=== PATIENT | female | born 1975 | race Two or more races ===

== ENCOUNTER 2025-06-10 17:52 | Inpatient (IN) | payer OTHER ==
[~2025-06-10] VITALS: Ht 172.7 cm; Wt 136.1 kg
--- NOTE | 2025-06-10 20:37 | NUR ---
PACIENTE ALERTA Y ORIENTADA X3 REFIERE VENIR POR ORDEN MEDICA DE DR. VALENTINE PARA ADMISION POR EDEMA EN LAS EXTREMIDADES INFERIORES. SE ASHLEY S/V Y SE UBICA.
--- NOTE | 2025-06-10 22:52 | NUR ---
PTE EVALUADO POR DR. REID, PRESENTANDO EDEMA GENERALIZADO, SE CALDERON MUESTRAS DE ALMAZ BAJO MEDIDAS ASEPTICAS, MEDICACION GIO ORDEN MEDICA ADMINISTRADA Y SE ORIENTA SOBRE PROCEDIMIENTOS REALIZADOS. CLIENTE ALERTA Y ORIENTADO ALE INTERVENCION RN.
[2025-06-10 23:19] LABS: BASO % 0.7 % (0.1-1.2); EOS # 0.25 (0.04-0.54); EOS % 3.5 % (0.7-7.0); LYMPH # 3.14 (1.18-3.74); LYMPH % 44.2 % (19.3-53.1); MEAN PLATELET VOLUME 11.40 fl (9.4-12.4); MONO # 0.33 (0.24-0.82); MONO % 4.6 % (4.7-12.5); NEUT # 3.32 (1.56-6.13); NEUT % 46.7 % (34.0-71.1); RED CELL DISTRIBUTION WIDTH 13.2 % (11.6-14.4)
[2025-06-10 23:37] LABS: INR 1.02
[2025-06-10 23:42] LABS: ALT/SGPT 15 U/L (12-78); AST/SGOT 23 U/L (15-37); BILIRUBIN TOTAL 0.15 mg/dL (0.3-1.2); BILIRUBIN,CONJUGATED < 0.10 mg/dL (0.0-0.2); BUN CREA RATIO 13 (7.0-25.0); CREATININE SERUM 0.76 mg/dL (0.55-1.02); GFR 81.22; GLOBULINA 4.9 G/DL (2.4-3.5); GLUCOSE FASTING 147 mg/dL (65-100); OSMOLALITY SERUM 285 MOSM/KG (275-295)
[2025-06-10 23:59] LABS: URINE APPEARANCE Clear; URINE BILIRRUBIN Negative (NEGATIVE); URINE BLOOD Small; URINE COLOR Yellow; URINE GLUCOSE Negative (NEGATIVE); URINE KETONE Negative (NEGATIVE); URINE LEUKOCYTE Negative; URINE NITRATE Negative; URINE PROTEIN >=1000 (NEGATIVE); URINE UROBILINOGEN 1.0 E.U./dl
[2025-06-11 00:03] LABS: URINE BACTERIA 85.1 uL (0.0-1933); URINE CAST 1.90 uL (0.0-1.40); URINE EPITHELIAL CELLS 8.7 uL (0.0-38.8); URINE RBC 18.0 uL (0.0-20.8); URINE WBC 3.9 uL (0.0-23.2)
[2025-06-11] MEDS ORDERED: ENOXAPARIN SODIUM 80 MG/0.8 ML SYRINGE SUBCUTANEO STA (01:02)
[2025-06-11] MEDS ORDERED: ASPIRIN 325 MG TABLET PO STA (01:03)
[2025-06-11] MEDS ORDERED: TICAGRELOR 90 MG TABLET PO STA (01:03)
[2025-06-11] MEDS ORDERED: ENOXAPARIN SODIUM 80 MG/0.8 ML SYRINGE SUBCUTANEO ONE (04:38)
[2025-06-11] MEDS ORDERED: NITROGLYCERIN IN 5 % DEXTROSE 50 MG/250 ML BOTTLE IV ONE (04:38)
[2025-06-11] MEDS ORDERED: LEVOTHYROXINE SODIUM 100 MCG/VIAL VIAL IV STA (06:58)
[2025-06-11] MEDS ORDERED: METHYLPREDNISOLONE SOD SUCC 500 MG VIAL IV SCH (06:59)
--- NOTE | 2025-06-11 08:05 | NUR ---
SE RECIBE PACIENTE ALERTA Y ORIENTADA X3 LA MISMA CON CANULA A 1 LITRO , CANALIZADA EN A/C CRYSTAL CON UN #22 PATENTE KEVIN DE EDEMA Y ERITEMA , BAJANDO UN TRIDIL A 3ML/HR. EN CONSULTA CON EL .ME REFIEREN LA COMPANERA Q LA PACIENTE NO QUISO EL FOLLY.
[2025-06-11] MEDS ORDERED: METHYLPREDNISOLONE SOD SUCC 40 MG VIAL ONE (08:59)
[2025-06-11] MEDS ORDERED: NITROGLYCERIN IN 5 % DEXTROSE 250 ML IV SCH (09:00)
--- NOTE | 2025-06-11 10:08 | NUR ---
SE LE BRINTA DIETA BAJA EN SODIO POR ORDEN DE
--- NOTE | 2025-06-11 16:23 | NUR ---
SE RECIBE PACIENTE ALERTA Y ORIENTADO X3. LA MISMA CONECTADA A MONITOR CARDIACO Y OXIMETRIA DE PULSO. CANALIZADA EN BRAZO CRYSTAL # 22 PATENTE Y KEVIN DE DOLOR BAJANDO CON UN TRIDIL 50MG/250ML @ 3 ML/HR. LA MISMA PENDIENTE A CASPER CUAL REHUSO Y CONSULTA CON MEDICINA INTERNA DR. CORREA. SE COLOCA DRIP DE TRIDIL EN HOLD POR ORDEN EN EMAR.
[2025-06-11] MEDS ORDERED: ACETAMINOPHEN 325 MG TABLET PO PRN (18:15)
[2025-06-11] MEDS ORDERED: ALBUMIN HUMAN-25 0.25GM/ML (50ML) VIAL IV ONE (20:00)
[2025-06-11] MEDS ORDERED: POTASSIUM CHLORIDE 8 MEQ TABLET PO SCH (21:43)
[2025-06-11 22:32] VITALS: BP 155/99
[2025-06-12 04:24] VITALS: BP 148/91; O2SAT 95
[2025-06-12] MEDS ORDERED: LEVOTHYROXINE SODIUM 200 MCG TABLET PO SCH (06:00)
[2025-06-12 08:11] LABS: BASO % 0.5 % (0.1-1.2); EOS # 0.04 (0.04-0.54); EOS % 0.5 % (0.7-7.0); LYMPH # 2.56 (1.18-3.74); LYMPH % 29.4 % (19.3-53.1); MEAN PLATELET VOLUME 11.80 fl (9.4-12.4); MONO # 0.45 (0.24-0.82); MONO % 5.2 % (4.7-12.5); NEUT # 5.59 (1.56-6.13); NEUT % 64.2 % (34.0-71.1); RED CELL DISTRIBUTION WIDTH 13.3 % (11.6-14.4)
[2025-06-12 08:39] VITALS: BP 147/72; O2SAT 94
[2025-06-12 08:54] LABS: CHOL HDL RATIO 6.5 (0-5.0); HDL 62.0 mg/dl (40-60); LDL 271.0 mg/dl (0-130); VLDL 72.0 (0-39)
[2025-06-12 08:55] LABS: BUN CREA RATIO 17.0 (7.0-25.0); CREATININE SERUM 0.7 mg/dL (0.55-1.02); GFR 89.31; GLUCOSE FASTING 146.0 mg/dL (65-100); OSMOLALITY SERUM 287.0 MOSM/KG (275-295); T4 FREE 0.59 NG/ML (0.76-1.46)
[2025-06-12] MEDS ORDERED: ENOXAPARIN SODIUM 40 MG/0.4 ML SYRINGE SUBCUTANEO SCH (09:00)
[2025-06-12] MEDS ORDERED: LOSARTAN/HYDROCHLOROTHIAZIDE 1 UDTAB TABLET PO SCH (09:00)
[2025-06-12] MEDS ORDERED: ACETAMINOPHEN 500 MG GEL..CAP PO PRN (09:45)
[2025-06-12] MEDS ORDERED: SPIRONOLACTONE 25 MG TABLET PO NR (10:00)
[2025-06-12 17:43] VITALS: BP 157/93
[2025-06-12] MEDS ORDERED: DEXTROSE 50 % IN WATER 0.5 G/ML DISP.SYRIN IV PRN (20:45)
[2025-06-12] MEDS ORDERED: INSULIN LISPRO 1,000 UNIT/10 ML UNITS SUBCUTANEO PRN (20:45)
[2025-06-13] MEDS ORDERED: ALBUMIN HUMAN-25 0.25GM/ML (50ML) VIAL IV SCH ×2 (01:00→13:00)
[2025-06-13 02:46] VITALS: BP 155/87; O2SAT 96
[2025-06-13 06:45] LABS: ALT/SGPT 16.0 U/L (12-78); AST/SGOT 26.0 U/L (15-37); BILIRUBIN TOTAL 0.23 mg/dL (0.3-1.2); BUN CREA RATIO 22.0 (7.0-25.0); CREATININE SERUM 0.67 mg/dL (0.55-1.02); GFR 93.94; GLOBULINA 3.3 G/DL (2.4-3.5); GLUCOSE FASTING 114.0 mg/dL (65-100); OSMOLALITY SERUM 289.0 MOSM/KG (275-295)
[2025-06-13] MEDS ORDERED: SPIRONOLACTONE 25 MG TABLET PO SCH (09:00)
[2025-06-13 09:07] VITALS: BP 168/86; O2SAT 96
[2025-06-13] MEDS ORDERED: LEVOTHYROXINE SODIUM 100MCG/ML REDILUIDO IV SCH (13:00)
[2025-06-13] MEDS ORDERED: BUMETANIDE 0.5 MG TABLET PO SCH (17:00)
[2025-06-13 20:41] VITALS: BP 175/82; O2SAT 95
[2025-06-14 01:00] VITALS: BP 155/96; O2SAT 99
[2025-06-14 10:01] VITALS: BP 178/90; O2SAT 94
[2025-06-14] MEDS ORDERED: AMINO ACIDS/PROTEIN HYDROLYS 30 ML BLIST.PACK PO SCH (17:00)
[2025-06-14 18:45] VITALS: BP 182/92; O2SAT 97
[2025-06-14] MEDS ORDERED: LOSARTAN POTASSIUM 100 MG TABLET PO SCH (20:52)
[2025-06-14] MEDS ORDERED: BUMETANIDE 0.25 MG/ML VIAL 4ML IV SCH (21:02)
[2025-06-15 03:23] VITALS: BP 167/82; O2SAT 96
[2025-06-15 06:57] LABS: BUN CREA RATIO 21 (7.0-25.0); CREATININE SERUM 0.58 mg/dL (0.55-1.02); GFR 110.96; GLUCOSE FASTING 127 mg/dL (65-100); OSMOLALITY SERUM 288 MOSM/KG (275-295)
[2025-06-15] MEDS ORDERED: LEVOTHYROXINE SODIUM 200 MCG TABLET PO STA (09:01)
[2025-06-15 10:36] VITALS: BP 159/83; O2SAT 97
[2025-06-15] MEDS ORDERED: AMLODIPINE BESYLATE 5 MG TABLET PO SCH (17:00)
[2025-06-15 19:49] VITALS: BP 182/100; O2SAT 97
[2025-06-16 03:10] VITALS: BP 146/84; O2SAT 94
[2025-06-16] MEDS ORDERED: LEVOTHYROXINE SODIUM 200 MCG TABLET PO SCH (06:00)
[2025-06-16 07:09] LABS: URINE PROT QUANT 24HR 1113.3 MG/DL
[2025-06-16 07:13] LABS: CREATINE CLEARANCE 98.1 ML/MIN (97-137); CREATININE SERUM 0.56 mg/dL (0.6-1.0)
[2025-06-16 09:13] VITALS: BP 146/84; O2SAT 96
[2025-06-16 10:07] LABS: COMPLEMENT C3 172 mg/dL (82-167); COMPLEMENT C4 23 mg/dL (12-38)
[2025-06-16] MEDS ORDERED: AMLODIPINE BESYL5 MG PO (11:13)
[2025-06-16] MEDS ORDERED: CLONIDINE HCL0.2 MG PO (11:13)
[2025-06-16] MEDS ORDERED: SPIRONOLACTONE25 MG PO (11:13)
[2025-06-16] MEDS ORDERED: LOSARTAN POTAS100 MG PO (11:13)
[2025-06-16] MEDS ORDERED: BUMETANIDE1 MG PO (11:14)
[2025-06-16] MEDS ORDERED: LEVOTHYROXINE200 MCG PO (11:23)
[2025-06-16] MEDS ORDERED: PROTEINEX-18 LI30 ML PO (11:24)
[2025-06-16 12:08] LABS: ANTI RIBOSOMAL AB < 0.2 AI (0.0-0.9)
== END 2025-06-16 17:16 | disposition home or self-care (01) | DRG 698 ==
LOC: ER 17:53 → MEDJ 06-11 18:09
PROVIDERS: General Practice; Internal Medicine; Specialist/Technologist, Other Nephrology; ADMIT Internal Medicine; ATTEND Internal Medicine
PROC: BW21ZZZ Computerized Tomography (CT Scan) of Abdomen and Pelvis (ICD-10-PCS; principal; 2025-06-10)
PROC: B246ZZZ Ultrasonography of Right and Left Heart (ICD-10-PCS; 2025-06-12)
PROC: BT43ZZZ Ultrasonography of Bilateral Kidneys (ICD-10-PCS; 2025-06-12)
PROC: BW21ZZZ Computerized Tomography (CT Scan) of Abdomen and Pelvis (ICD-10-PCS; 2025-06-13)
PROC: 02HV33Z Insertion of Infusion Device into Superior Vena Cava, Percutaneous Approach (ICD-10-PCS; 2025-06-13)
PROC: B548ZZA Ultrasonography of Superior Vena Cava, Guidance (ICD-10-PCS; 2025-06-13)
DX: N04.9 Nephrotic syndrome with unspecified morphologic changes (principal); I50.21 Acute systolic (congestive) heart failure; I13.0 Hypertensive heart and chronic kidney disease with heart failure and stage 1 through stage 4 chronic kidney disease, or unspecified chronic kidney disease; N28.9 Disorder of kidney and ureter, unspecified; E88.09 Other disorders of plasma-protein metabolism, not elsewhere classified; R60.1 Generalized edema; I11.0 Hypertensive heart disease with heart failure; E03.9 Hypothyroidism, unspecified